=== PATIENT | male | born 1975 | race Caucasian/White ===

== ENCOUNTER → 2018-11-18 | Outpatient (CLI) | payer OTHER ==
[~2018-11-18] VITALS: Ht 180.3 cm; Wt 78.0 kg
--- NOTE | ~2018-11-18 | PATH ---
[facility] [address] [place] [address] PATHOLOGY RPT PROCEDURE Name: JENNICISCO David Room #: REG [facility].#: [id number] Admission: 11/18/18 Date of : 73 Discharge: Report #: [id number] Path Case #: [id number] Accession Number: [id number] . 01 Material submitted: . CECAL POLYP BIOPSY X2 . 01 Clinical history: . Pre-OP DX: Family history colon cancer Post-OP DX: Colon polyps . 02 Diagnosis: Polyp x 2, cecal polyps, endoscopic biopsy: - Multiple fragments showing tubular adenoma without high grade dysplasia. - Multiple fragments showing hyperplastic polyps without dysplasia. (IUV/db; 11/19/18) LBQ/11/19/2018 . 02 Electronically signed: . Michelle Morin MD, Pathologist NPI- [id number] . 01 Gross description: . Received in formalin labeled "[employer] G[employer], cecal polyp biopsy x2," are 5 segments of preston soft tissue measuring 0.9 x 0.8 x 0.2 cm in aggregate dimensions and ranging from 0.2 to 0.4 cm in maximum dimension. The specimen is submitted entirely in cassette A1. (TSD; 11/18/2018) TOB/TOB . 02 Pathologist provided ICD-10: D12.0, K63.5 . 02 CPT . 017749 Specimen Comment: A courtesy copy of this report has been sent to Specimen Comment: [phone], . Specimen Comment: Report sent to and Performed at: [address], [place] [id number] MD Jake Forrest MD Phone: [phone] Performed at: [address] [id number] MD Michelle Morin MD Phone: [phone]
--- NOTE | ~2018-11-18 | P ---
[facility] [address] [address] PROCEDURE REPORT Name: PADMA ARTEAGA Joann Room #: REG [facility]#: [id number] Admission: 11/18/18 Attend Phys: Theodore Jacques MD Discharge: Date of : 73 Report #: [id number] THIS REPORT FOR: //name// CC: Theodore Hernández MD OUTPATIENT COLONOSCOPY REPORT BRIEF HISTORY: The patient is a 43-year-old male with a family history of colon cancer. His 45-year-old brother was recently diagnosed with stage 4 colon cancer. PREOPERATIVE DIAGNOSIS: Family history of colon cancer. POSTOPERATIVE DIAGNOSES: 1. Diminutive cecal polyps x 2. 2. Few scattered small diverticula, proximal colon. MEDICATIONS: Deep sedation with propofol per anesthesia. SPECIMEN: Cecal polyps x 2. ESTIMATED BLOOD LOSS: 3 mL. PROCEDURE: Colonoscopy to cecum and terminal ileum. FINDINGS: Prior to propofol sedation, the procedure of colonoscopy was discussed with the patient as well as potential risks and its complications. He indicates he understands and desires to proceed. DESCRIPTION OF PROCEDURE: With the patient in left lateral decubitus position, digital examination was completed, which revealed no abnormalities. Subsequently, the Olympus video colonoscope was introduced in the rectum, advanced under direct vision to the cecum. Done with minimal difficulty. Cecum was identified by the ileocecal valve and the appendiceal orifice. I was able to visualize the distal segment of the terminal ileum, which was inspected and noted to be unremarkable. At that point, the scope was slowly withdrawn and careful circumferential views were obtained. Upon slow withdrawal of the scope, the prep was good. The mucosa was within normal limits, normal vascular pattern, normal light reflex. As we withdrew the scope, 2 diminutive polyps were seen in the cecum, removed with Jumbo biopsy forceps. Scope was further withdrawn and no additional neoplastic lesions were seen. There were a few small diverticula noted in the proximal colon. I did not see elsewhere in the colon, but certainly small diverticula could be present, which were not observed endoscopically. Again, no additional polyps were seen. The scope was withdrawn in the rectum and upon retroflexion, no abnormalities were seen. The scope was [facility] [address] [place] [address] PROCEDURE REPORT Name: PADMA ARTEAGA Room #: REG [facility].#: [id number] Admission: 11/18/18 Attend Phys: Theodore Jacques MD Discharge: Date of : 73 Report #: [id number] withdrawn. The patient tolerated the procedure well. CONDITION OF THE PATIENT UPON DISCHARGE: Following the procedure, the patient was drowsy, arousable, conversant and will be discharged home when fully ambulatory. INSTRUCTIONS TO THE PATIENT AND FAMILY AT THE TIME OF DISCHARGE: Two diminutive polyps identified and removed as described above. We will follow up with the pathology. However, due to the family history, I suggest he return in 3 years for a screening colonoscopy. This is the patient's first colonoscopy. Withdrawal time from the cecum was 9 minutes 31 seconds. By: 0918 1822 Theodore Jacques MD /nt
== END | disposition home or self-care (01) ==
LOC: GI 06:50
DX: Z12.11 Encounter for screening for malignant neoplasm of colon (principal); K57.30 Diverticulosis of large intestine without perforation or abscess without bleeding; D12.0 Benign neoplasm of cecum; F17.210 Nicotine dependence, cigarettes, uncomplicated; Z80.0 Family history of malignant neoplasm of digestive organs; Z88.8 Allergy status to other drugs, medicaments and biological substances; Z98.818 Other dental procedure status; Z98.890 Other specified postprocedural states
CPT/HCPCS: 62110; 62900